=== PATIENT | male | born 1965 | race Hispanic/Latino ===

== ENCOUNTER 2016-11-20 00:13 | Observation (INO) | payer MEDICAID, OTHER ==
[2016-11-20 00:14] VITALS: BMI 28.3
[2016-11-20 00:36] VITALS: PULSE 80
--- NOTE | 2016-11-20 00:56 | C.PDOC ---
History Of Present Illness Patient presents to the ER complaining of depression. Patient admits to crack and heroin used today. Denies SI. Time Seen by Provider: 11/20/16 00:56 Chief Complaint (Nursing): Psychiatric Evaluation History Per: Patient History/Exam Limitations: no limitations Onset/Duration Of Symptoms: Hrs Current Symptoms Are (Timing): Still Present Suicide/Self Injury Attempted (Context): None Modifying Factor(s): Narcotics, Crack Severity: None Pain Scale Rating Of: 0 Associated Symptoms: Depression. denies: Suicidal Thoughts, Suicidal Plan Recent travel outside of the [place]: No Past Medical History Reviewed: Historical Data, Nursing Documentation, Vital Signs Vital Signs: Last Vital Signs Temp 97.5 F L 11/20/16 00:35 Pulse 80 11/20/16 04:02 Resp 16 11/20/16 04:02 BP 136/78 11/20/16 04:02 Pulse Ox 96 11/20/16 04:24 - Medical History PMH: Anxiety, Depression Surgical History: No Surg Hx - [facility] Procedures CLOSURE SKIN & SUBCUTANEOUS NEC (08/11/12) DETOXIFICATION SERVICES FOR SUBSTANCE ABUSE TREATMENT (10/17/16) GROUP PSYCHOTHERAPY (10/17/16) INDIVIDUAL PSYCHOTHERAPY, SUPPORTIVE (10/17/16) INJECT/INFUSE ELECTROLYT (03/12/15) INJECT/INFUSE NEC (03/12/15) OTHER SKIN & SUBQ I D (06/17/14) THORACENTESIS (11/06/02) Family History: States: No Known Family Hx - Social History Hx Tobacco Use: No Hx Alcohol Use: No Hx Substance Use: Yes - Immunization History Hx Tetanus Toxoid Vaccination: No Hx Influenza Vaccination: No Hx Pneumococcal Vaccination: No Review Of Systems Psych: Positive for: Depression. Negative for: Suicidal ideation Physical Exam - Physical Exam Appears: Non-toxic Skin: Warm, Dry Oral Mucosa: Moist Chest: Symmetrical, No Tenderness Cardiovascular: Rhythm Regular Respiratory: No Rales, No Rhonchi, No Wheezing Gastrointestinal/Abdominal: Soft, No Tenderness Neurological/Psych: Oriented x3 ED Course And Treatment - Laboratory Results Result Diagrams: 11/20/16 02:36 11/20/16 02:36 ECG: Interpreted By Me, Viewed By Me ECG Rhythm: Sinus Rhythm, Nonspecific Changes O2 Sat by Pulse Oximetry: 96 (Room air) Pulse Ox Interpretation: Normal - Radiology CXR: Interpreted by Me, Viewed By Me CXR Interpretation: No: Infiltrates, Fracture, Pnemothorax Progress Note: Blood work and urinalysis ordered. pt medically cleared for pshychiatric transfer. pt was cleared for discharge by dr gonzalez Reevaluation Time: 05:18 Reassessment Condition: Improved Disposition Counseled Patient/Family Regarding: Studies Performed, Diagnosis, Need For Followup - Disposition Disposition: HOME/ ROUTINE Disposition Time: 00:56 Condition: FAIR - Clinical Impression Clinical Impression: Depression - Scribe Statement The provider has reviewed the documentation as recorded by the Scribabhishek Fernandez All medical record entries made by the Scribe were at my direction and personally dictated by me. I have reviewed the chart and agree that the record accurately reflects my personal performance of the history, physical exam, medical decision making, and the department course for this patient. I have also personally directed, reviewed, and agree with the discharge instructions and disposition. Decision To Admit - . Patient Diagnosis: Depression
[2016-11-20 02:40] LABS: BASO % 0.4 % (0.0-2.0); EOS # 0.2 K/uL (0.0-0.7); EOS % 4.2 % (0.0-4.0); HEMATOCRIT 39.9 % (35.0-51.0); LYMPH # 1.5 K/uL (1.0-4.3); LYMPH % 25.3 % (20.0-40.0); MEAN CELL VOLUME 86.7 fL (80.0-94.0); MEAN CORPUSCULAR HEMOGLOBIN 28.9 pg (27.0-31.0); MEAN CORPUSCULAR HGB CONC 33.3 g/dL (33.0-37.0); MEAN PLATELET VOLUME 8.5 fL (7.2-11.7); MONO # 0.4 K/uL (0.0-0.8); MONO % 7.2 % (0.0-10.0); NRBC % 0.1 % (0.0-2.0); RED CELL DISTRIBUTION WIDTH 13.4 % (11.5-14.5); WHITE BLOOD COUNT 5.9 K/uL (4.8-10.8)
[2016-11-20 02:42] LABS: RBC URINE 5 /hpf (0-3); URINE BACTERIA RARE (<OCC); URINE BILIRUBIN NEGATIVE (NEGATIVE); URINE BLOOD NEGATIVE (NEGATIVE); URINE COLOR Yellow (YELLOW); URINE GLUCOSE (UA) NORMAL (Normal); URINE KETONE NEGATIVE (NEGATIVE); URINE LEUKOCYTE ESTERASE NEG Leu/uL (Negative); URINE PROTEIN NEGATIVE (NEGATIVE); URINE UROBILINOGEN NORMAL mg/dL (0.2-1.0); WBC URINE 1 /hpf (0-5)
[2016-11-20 02:43] LABS: CHLORIDE 104 mmol/L (98-107)
[2016-11-20 02:44] LABS: POTASSIUM 3.8 mmol/L (3.6-5.2); SODIUM 138 mmol/L (132-148)
[2016-11-20 02:46] LABS: ALB/GLOB RATIO 1.4 (1.0-2.1); ALKALINE PHOSPHATASE 54 U/L (38-126); AST/SGOT 32 U/L (17-59); BILIRUBIN,TOTAL 0.5 mg/dL (0.2-1.3); BLOOD UREA NITROGEN 18 mg/dL (9-20); CARBON DIOXIDE 27 mmol/L (22-30); GFR AFRICAN-AMERICAN > 60; TOTAL PROTEIN 6.3 g/dL (6.3-8.3)
[2016-11-20 02:47] LABS: ALCOHOL SERUM < 10 mg/dl (0-10); ALT/SGPT 37 U/L (21-72); CALCIUM 8.4 mg/dl (8.6-10.4); GLUCOSE,RANDOM 125 mg/dL (75-110)
[2016-11-20 04:12] VITALS: RESP 16
[2016-11-20 05:31] VITALS: BP 141/83; TEMP 98.2; O2SAT 98
--- NOTE | 2016-11-20 09:37 | RAD ---
PROCEDURE: CHEST RADIOGRAPH, 1 VIEW HISTORY: required psych COMPARISON: 03/04/2015 FINDINGS: LUNGS: Clear. PLEURA: No pneumothorax or pleural fluid seen. CARDIOVASCULAR: Normal. OSSEOUS STRUCTURES: No significant abnormalities. VISUALIZED UPPER ABDOMEN: Normal. OTHER FINDINGS: None. IMPRESSION: No active disease.
--- NOTE | 2016-11-24 12:47 | CARD ---
APPROVED REPORT EKG Measurement Heart [id number] <Conclusion> Normal sinus rhythm Normal ECG
== END 2016-11-20 05:25 | disposition home or self-care (01) ==
LOC: C.ER 00:13 → C.9OBSV 04:23
PROVIDERS: ADMIT Emergency Medicine; ATTEND Emergency Medicine
DX: F32.9 Major depressive disorder, single episode, unspecified (principal); F11.10 Opioid abuse, uncomplicated